=== PATIENT | female | born 1980 | race Caucasian/White ===

== ENCOUNTER 2017-07-23 | Emergency (ER) | payer MEDICAID, OTHER ==
--- NOTE | 2017-07-23 11:12 | ER ---
Nurse's Notes [facility] Name: Jazmin Leija Age: 37 yrs Sex: Female : 1980 Arrival Date: 07/23/2017 Time: 10:40 Bed 5 Private MD: Diagnosis: Abdominal distension (gaseous) Presentation: 07/23 10:42 Presenting complaint: Patient states: Intermittent abdominal swelling and upper hb abdominal pain x 2 years, swelling today is worse eating donut. Takes Miralax daily. Transition of care: patient was not received from another setting of care. Onset of symptoms is unknown. Care prior to arrival: None. 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 - Social history:: Smoking status: Patient uses tobacco products, smokes one pack cigarettes per day. - Family history:: not pertinent. - Hospitalizations: : No recent hospitalization is reported. Screenin:02 Abuse screen: Denies threats or abuse. Nutritional screening: No deficits noted. la1 Tuberculosis screening: No symptoms or risk factors identified. Fall Risk None identified. Assessment: 11:01 General: Appears in no apparent distress. Behavior is calm, cooperative. Pain: Denies la1 pain. Neuro: Level of Consciousness is awake, alert, obeys commands, Oriented to person, place, time, situation. Cardiovascular: Capillary refill < 3 seconds Patient's skin is warm and dry. GI: Abdomen is round non-distended, obese, Bowel sounds present X 4 quads. Abd is soft and non tender X 4 quads. GI: Patient currently denies diarrhea, nausea, vomiting. : No signs and/or symptoms were reported regarding the genitourinary system. Vital Signs: 10:45 BP 148 / 92; Pulse 83; Resp 18; Temp 98; Pulse Ox 98% on R/A; Weight 95.25 kg; Height 5 hb ft. 5 in. (165.10 cm); Pain 7/10; 10:45 Body Mass Index 34.95 (95.25 kg, 165.10 cm) hb ED Course: 10:40 Patient arrived in ED. as 10:43 Triage completed. hb 10:45 Arm band placed on left wrist. hb 10:49 Xiang Salgado MD is Attending Physician. rn 11:01 Duy Rdz RN is Primary Nurse. la1 11:02 Call light in reach. Side rails up X 1. la1 11:02 No provider procedures requiring assistance completed. Patient did not have IV access la1 during this emergency room visit. Administered Medications: No medications were administered Outcome: 11:06 Discharged to home ambulatory. la1 11:06 Condition: stable 11:06 Discharge instructions given to patient, Instructed on discharge instructions, follow up and referral plans. medication usage, Demonstrated understanding of instructions, follow-up care. 11:11 Discharge ordered by . rn 11:14 Patient left the ED. la1 Signatures: Monalisa Giraldo as Xiang Salgado MD MD rn Attema, Lee, RN RN la1 Rosita Morton RN RN hb Corrections: (The following items were deleted from the chart) 10:47 10:42 Presenting complaint: Patient states: Intermittent abdominal swelling x 2 years, hb today is worse eating donut. hb
--- NOTE | 2017-07-23 11:13 | EDPHYS ---
Physician Documentation [facility] Name: Jazmin Leija Age: 37 yrs Sex: Female : 1980 Arrival Date: 07/23/2017 Time: 10:40 Bed 5 Private MD: ED Physician Xiang Salgado HPI: 07/23 11:03 This 37 yrs old Female presents to ER via Ambulatory with complaints of rn Abdominal Swelling. 11:03 The patient presents with abdominal distention that is diffuse. Onset: The rn symptoms/episode began/occurred 6 year(s) ago. The symptoms do not radiate. Associated signs and symptoms: Pertinent positives: constipation, Pertinent negatives: nausea and vomiting, blood in stools, fever, hematuria, vomiting, vomiting blood. Modifying factors: The symptoms are alleviated by nothing, the symptoms are aggravated by movement. The patient has experienced similar episodes in the past. Reports 6 years of intermittent abd swelling, has been evaluated before for it without clear answer, states has had upper GI but no colonoscopy, + alternating diarrhea and constipation, takes miralax daily, had very small bowel movement today, no vomiting/fever. Pain today is not as severe as it has been in past. . DIRECTOR DIVERSITY: 10:45 LMP 07/05/2017 hb Historical: - Allergies: 10:44 PENICILLINS (Rash); hb - Home Meds: 10:44 Fish Oil oral oral [Active]; vitamin D76-cryca acid 500-400 mcg oral tab [Active]; hb 10:47 Miralax 17 gram Oral pwpk 1 packet once daily [Active]; hb - PMHx: 10:44 None; hb - PSHx: 10:44 Tubal ligation; hb 10:44 Appendectomy; hb - Immunization history:: Adult Immunizations up to date. - Social history:: Smoking status: Patient uses tobacco products, smokes one pack cigarettes per day. - Family history:: not pertinent. - Hospitalizations: : No recent hospitalization is reported. ROS: 11:03 Constitutional: Negative for fever, chills, and weight loss, Eyes: Negative for injury, rn pain, redness, and discharge, Neck: Negative for injury, pain, and swelling, Cardiovascular: Negative for chest pain, palpitations, and edema, Respiratory: Negative for shortness of breath, cough, wheezing, and pleuritic chest pain, Abdomen/GI: Negative for nausea, vomiting, diarrhea Back: Negative for injury and pain, MS/Extremity: Negative for injury and deformity, Skin: Negative for injury, rash, and discoloration, Neuro: Negative for headache, weakness, numbness, tingling, and seizure. Exam: 11:03 Constitutional: This is a well developed, well nourished patient who is awake, alert, rn and in no acute distress. Head/Face: Normocephalic, atraumatic. Eyes: Pupils equal round and reactive to light, extra-ocular motions intact. Lids and lashes normal. Conjunctiva and sclera are non-icteric and not injected. Cornea within normal limits. Periorbital areas with no swelling, redness, or edema. Neck: Trachea midline, no thyromegaly or masses palpated, and no cervical lymphadenopathy. Supple, full range of motion without nuchal rigidity, or vertebral point tenderness. No Meningismus. Cardiovascular: Regular rate and rhythm with a normal S1 and S2. No gallops, murmurs, or rubs. Normal PMI, no JVD. No pulse deficits. Respiratory: Lungs have equal breath sounds bilaterally, clear to auscultation and percussion. No rales, rhonchi or wheezes noted. No increased work of breathing, no retractions or nasal flaring. Abdomen/GI: soft, + abd distension, no masses Skin: Warm, dry with normal turgor. Normal color with no rashes, no lesions, and no evidence of cellulitis. MS/ Extremity: Pulses equal, no cyanosis. Neurovascular intact. Full, normal range of motion. Equal circumference. Neuro: Awake and alert, GCS 15, oriented to person, place, time, and situation. Cranial nerves II-XII grossly intact. Motor strength 5/5 in all extremities. Sensory grossly intact. Cerebellar exam normal. Normal gait. Vital Signs: 10:45 BP 148 / 92; Pulse 83; Resp 18; Temp 98; Pulse Ox 98% on R/A; Weight 95.25 kg; Height 5 hb ft. 5 in. (165.10 cm); Pain 7/10; 10:45 Body Mass Index 34.95 (95.25 kg, 165.10 cm) hb MDM: 10:49 Patient medically screened. rn 11:03 Differential diagnosis: bowel obstruction, diverticulitis, gastritis, gastroesophageal rn reflux disease, non-specific abd pain, IBS, IBD, constipation, gaseous distension. Data reviewed: vital signs, nurses notes. ED course: Offered patient and labs and ct abdomen, patient prefers to go home, try OTC treatments like she has done before with resolution, states if still feels worse then will come back for w/u. Return precautions given and understood.. Administered Medications: No medications were administered Disposition: 07/23/17 11:11 Discharged to Home. Impression: Abdominal distension (gaseous). - Condition is Stable. - Discharge Instructions: Constipation, Adult, Irritable Bowel Syndrome, Adult, Abdominal Pain, Women. - Medication Reconciliation Form, Thank You Letter, Antibiotic Education, Prescription Opioid Use form. - Follow up: Private Physician; When: As needed; Reason: Recheck today's complaints, Re-evaluation by your physician. - Problem is chronic. - Symptoms are unchanged. Signatures: Xiang Salgado MD MD rn Attema, Lee, RN RN la1 Rosita Morton RN RN
== END 2017-07-23 11:14 | disposition home or self-care (01) ==
CPT/HCPCS: 99281